=== PATIENT | male | born 1975 | race Caucasian/White ===

== ENCOUNTER 2021-05-28 19:55 | Emergency (ER) | payer SELFPAY ==
[2021-05-28 19:57] VITALS: BP 160/99; PULSE 90; RESP 16; TEMP 37.3; O2SAT 98
--- NOTE | 2021-05-28 20:26 | ED.GENADUL_ITS ---
Discharge Plan Disposition Patient Disposition: HOME Condition: Good Discharge Details Clinical Impression: Acute pulpitis, Dental infection Primary Care Provider: Unknown,Unknown ED Provider: Andreas Thornton Home Meds and New Rx's Prescriptions: Continued amoxicillin-pot clavulanate [Augmentin] 875-125 mg Tablet 1 tab PO BID RF: 0 Discharge Instructions Instructions: Dental Abscess (ED) Additional Instructions: At this time you do have an infection of your teeth, but at this time there is no evidence of abscess on ultrasound. If you have continued swelling please ret urn as this may mean that you do have an abscess that we need to drain with a needle. Please take the [place] pain tablets as needed. Place ice on your face to help with the swelling, and continue to take Tylenol and Motrin to help with your inflammation. Please follow-up closely with your dentist. If you notice any worsening of your symptoms, or any new symptoms such as vomiting, diarrhea, fever, chills, shortness of breath, chest pain, numbness, weakness, or fainting , please return immediately to the emergency department for reevaluation. Please follow up with your primary care provider as soon as possible for reassessment and reevaluation. As always, it was a pleasure participating in your medical care today. Discharge Data Discharge Date/Time-TO BE ENTERED AT DEPARTURE: 05/28/21 20:35 Medical Decision Making 45-year-old male with a past medical history of severe dental caries presents today for evaluation of dental pain and swelling. Patient has a history of severe caries but has been unable to manage them or get them cared for secondary to lack of insurance, in the recent pandemic. However over the last few days he has noted increased pain and swelling over the right upper frontal teeth. Patient did go and see his primary care provider, who did give him a shot of penicillin, a prescription for Augmentin, recommended he come to the ER for further evaluation secondary to swelling. Patient denies any fever or chills. He does feel that the swelling is encroaching up his face on the right. He denies any severe headache, he does admit to occasional blurry vision in his right eye. He denies any pain in his eye though. No other complaints at this time. He has not yet taken his first dose of Augmentin. Patient has been taking Tylenol and Motrin without significant improvement. Exam shows evidence of mild swelling above his right upper frontal teeth. However palpation demonstrates no evidence of fluctuance or abscess, bedside ultrasound also shows no evidence of fluctuance, fluid collection or abscess. With no signs of Ludewig's angina, airway compromise, orbital cellulitis, or significant/severe facial cellulitis which is no indication for IV antibiotics. Patient states that he does have his prescription filled for Augmentin, and will be able to take this. I did offer needle assessment for block and or potential evaluation of minimal fluid in the patient is refused any additional needle pokes at this time. Discussed red flags which to return. We will give a small bottle of [place] pills to go. I have extensively reviewed the treatment plan and discharge instructions with the patient. I have addressed all patient concerns at this time. The patient was made aware of what symptoms to monitor for that would warrant a return to the emergency department. Discussed the plan with the patient, they demonstrate verbal understanding and agreement with our assessment and plan at this time. The documentation in this chart was dictated using Mad[employer] dictation software. Please excuse any dictation errors. HPI General Date/Time Provider Initiated Documentation: 05/28/21 20:25 . HPI Narrative: 45-year-old male with a past medical history of severe dental caries presents today for evaluation of dental pain and swelling. Patient has a history of severe caries but has been unable to manage them or get them cared for secondary to lack of insurance, in the recent pandemic. However over the last few days he has noted increased pain and swelling over the right upper frontal teeth. Patient did go and see his primary care provider, who did give him a shot of penicillin, a prescription for Augmentin, recommended he come to the ER for further evaluation secondary to swelling. Patient denies any fever or chills. He does feel that the swelling is encroaching up his face on the right. He denies any severe headache, he does admit to occasional blurry vision in his right eye. He denies any pain in his eye though. No other complaints at this time. He has not yet taken his first dose of Augmentin. Patient has been taking Tylenol and Motrin without significant improvement. Related Data Home Medications Medication Instructions Recorded Confirmed amoxicillin-pot clavulanate 1 tab PO BID 05/28/21 05/28/21 [Augmentin] Allergies Allergy/AdvReac Type Severity Reaction Status Date / Time No Known Allergies Allergy Unverified 05/28/21 20:02 General Stated Complaint: FacialProb SERENA: 4 Review of Systems All systems reviewed & are unremarkable except as noted in HPI and below PFSH Social History Smoking/Tobacco Use Status: Current every day Tobacco Type: cigarettes Smoking risk assessment performed?: Yes Alcohol Intake: never Drug use: Never Do you feel safe at home: Yes Do you feel safe in your relationship?: Yes Exam Narrative Exam Narrative: 1.Const: Well-nourished, Well-developed, appearing stated age 2.Eyes: PERRL, no conjunctival injection, and symmetrical lids. 3.ENT: Atraumatic external nose and ears. Moist MM. Neck: Symmetric, trachea midline, No thyromegaly. Notably severe dentition. No swelling in the posterior oropharynx. Patient has mild swelling on the right side of his face below his eye, and at the level of his right cheek and right upper teeth. No pain with movement of the eye, no restriction of movement. Palpation of the upper gums shows no evidence of focal swelling or fluctuance suggestive of abscess. Bedside ultrasound also shows no evidence of abscess at or around the teeth. There is cobblestoning in the soft tissues, but no evidence of localized fluid collection. 4.CVS: +S1/S2, No murmurs or gallops. Peripheral pulses 2+ and equal in all extremities. Brisk capillary refill in all extremities. 5.RESP: Unlabored respiratory effort. Clear to auscultation bilaterally. No wheezes rales or rhonchi 6.GI: Soft, Nontender/Nondistended, No hepatosplenomegaly. No guarding or rebound. 7.MSK: Normocephalic/Atraumatic, Extremities w/o deformity or ttp No cyanosis or clubbing, Normal movement of all extremities 8.Skin: Warm, Dry. No rashes or lesions. 9.Neuro: mental health social worker II-XII grossly intact. Sensation grossly intact, no focal neurologic deficits. 10.Psych: (AAO) x3. Appropriate mood and affect Course Vital Signs Vital signs: Vital Signs Temperature 37.3 C 05/28/21 19:57 Pulse 90 05/28/21 19:57 Respiratory Rate 16 05/28/21 19:57 Blood Pressure 160/99 H 05/28/21 19:57 Pulse Oximetry 98 05/28/21 19:57 Temperature 37.3 C 05/28/21 19:57 Temperature Source Temporal Artery Scan 05/28/21 19:57 Pulse 90 05/28/21 19:57 Respiratory Rate 16 05/28/21 19:57 Respiratory Effort Non-Labored 05/28/21 20:04 Blood Pressure 160/99 H 05/28/21 19:57 Blood Pressure Position Sitting 05/28/21 19:57 Pulse Oximetry 98 05/28/21 19:57 Oxygen Delivery Method Room Air 05/28/21 19:57 Oxygen Flow Rate 0 05/28/21 19:57 Pain Level 10 05/28/21 19:57
[2021-05-28 20:33] VITALS: BP 135/89; PULSE 96; RESP 18; TEMP 36.4; O2SAT 98
== END 2021-05-28 20:35 | disposition home or self-care (01) ==
PROVIDERS: Emergency Provider Student in an Organized Health Care Education/Training Program
DX: K04.7 Periapical abscess without sinus (principal); K04.01 Reversible pulpitis
CPT/HCPCS: 99283

== ENCOUNTER 2022-02-25 04:33 | Outpatient (CLI) | payer MEDICAID, SELFPAY ==
[2022-02-25 11:32] LABS: Source Nasal/Nares
[2022-02-25 14:03] LABS: COVID-19 PCR Negative (Negative)
== END 2022-02-25 04:34 | disposition home or self-care (01) ==
LOC: LBO 04:34
PROVIDERS: PCP Family Medicine; Visit Provider Surgery
DX: Z20.822 Contact with and (suspected) exposure to COVID-19 (principal); Z01.818 Encounter for other preprocedural examination
CPT/HCPCS: 87635

== ENCOUNTER 2022-02-27 07:15 | Day surgery (SDC) | payer MEDICAID, SELFPAY ==
--- NOTE | 2022-02-27 06:31 | ROE_ITS ---
Date of service: 02/27/22 Time of Service: 10:10 Operative Note Operative Note DATE OF PROCEDURE: 02/27/22 PRE-OP DIAGNOSIS: multiple Lipomas POST-OP DIAGNOSIS: same PROCEDURE: Excision of multiple lipomas SURGEON: Romina Wan BUSINESS DEVELOPMENT SPECIALIST: Kathy Bell ANESTHESIA TYPE: Local By Surgeon and MAC Refer to Anesthesia Record ESTIMATED BLOOD LOSS: 3 PATHOLOGY: other (lipomas) COMPLICATIONS: None Patient was transported to: same day Patient's condition: stable Findings: Lipomas: Right thigh- 2.5 x 1.75 cm, 2.5 x 2 cm Left Thigh- 1.5 x 1.2 cm and 1.5 x 1.5 cm Left hip- 2.6 x 3.5 cm Right Forearm- 2.2 x 1.9, 2.3 x 1.4 cm, 1.8 x 1.3 and 1 x 0.8 cm Left Forearm- 1 x1, 1.3 x 1.5 and 2.2 x 2 cm Procedure Description: After informed consent was obtained the patient was taken to the operating room and placed in a supine position. Monitors were applied and he was sedated. Once sedated and comfortable a time out was done. The patients name, , Procedure to be done and sites, allergies to medication, antibiotic given and dvt prophilaxis were reviewed. Fire risk was assessed. The skin on his bilateral thighs and left hip were then prepped and draped in a sterile surgical fashion. 0.25% of Bupivocaine was injected into the dermis and subcutaneous tissue along the previously marked areas. An incision was made over the palpable lesion with a 15 blade. Dissection was done around the lesion using both blunt dissection with a hemostat and sharp dissection with curved iris scissors. Once the lipoma was completely dissected it was removed and measured. Two lipomas were removed from the Right anterior thigh, 3 of the left thigh and one of the left hip. Once the wound was clean and dry the dermis was closed with a running 4-0 Vicryl suture. Skin was cleaned and dried and skin affix was applied. Next the drapes were removed. We changed gloves and prepped and draped bilateral upper extremities. The Bupivocaine was injected into the dermis over the palpable lipomas. An incision was made over each lipoma. Dissection was done with iris scissors. Once the lipomas were removed they were measured. The skin was cleaned and dried. The dermis was closed with 4-0 vicryl. The skin was cleaned and skin affix was applied. A total of 4 lipomas were removed from the Right forearm and 3 lipomas were removed from the left forearm. The patient tolerated the procedure well and there were no immediate complications. Needle counts were correct at the end of the case. The patient was woken up and taken back to [facility],
--- NOTE | 2022-02-27 06:32 | W.PREOPHP ---
Assessment and Plan Assessment and plan (1) Lipoma: Status: Acute Assessment and plan: Mr. Juares is a 46-year-old gentleman with multiple lipomas on his body which she would like to have removed.? We discussed removal in the office under local versus removal in the operating room under MAC sedation.? Patient does not want to be awake while having these removed so we will schedule him in the operating room.? We will ask for some light sedation just so the patient is comfortable.? He will need to have somebody drive him to the hospital and pick him up.? I reviewed the risks and benefits of the procedure as well as scarring.? He understands and wishes to proceed. Risks, benefits, complications were reviewed with him.? Complications include but are not limited to bleeding, infection, wound dehiscence, recurrence and adverse reaction to the medications.? Questions were entertained and answered to his satisfaction and he wished to proceed.? No guarantees were given or implied. Proceed with excision of multiple lipomas under MAC sedation. History of Present Illness History of Present Illness Chief Complaint: multiple lipomas Narrative: Mr. Juares is a pleasant 46-year-old gentleman who comes in today because of multiple lipomas that he would like to have removed.? He states that most of them are starting to cause him discomfort.? His mother and grandmother both have had multiple lipomas removed.? He is otherwise healthy and only takes Wellbutrin as medication.? He denies any chest pain or shortness of breath. Review of Systems All systems reviewed & are unremarkable except as noted in HPI and below PFSH All Active Problems Lipoma (Acute) multiple small nodules- arms and legs-relatively small, 1-2 cm in diam. Medical History Acute pulpitis Anxiety and depression Longstanding Personal history of nicotine dependence 12/2021-about 1 pack/day, [id number] history Surgical History H/O wrist surgery Left wrist remotely probable ganglion versus lipoma removal Family History Father Heart disease Mother Depression Social History Smoking/Tobacco Use Status: Current every day Tobacco Type: cigarettes Smoking risk assessment performed?: Yes Alcohol Intake: never Drug use: Never Substance use type: does not use Do you feel safe at home: Yes Additional Social history: unableto assess privatley Meds Allergies and Home Medications Allergies Allergy/AdvReac Type Severity Reaction Status Date / Time No Known Allergies Allergy Unverified 02/27/22 07:27 Home Medications Medication Instructions Recorded Confirmed Type bupropion HCl 150 mg 24 hr tablet, 150 mg PO DAILY #30 tab 01/16/22 01/22/22 Rx extended release (Wellbutrin XL) Exam Const General: cooperative, comfortable and no acute distress HENMT Head: normocephalic and atraumatic Resp Effort & Inspection: normal respiratory effort Auscultation: clear to auscultation bilaterally Cardio Rate: regular rate Rhythm: regular rhythm Heart Sounds: no gallops, no murmurs and no rubs
--- NOTE | 2022-02-27 06:34 | W.PM.DSUDISC ---
Discharge Plan Disposition Patient Disposition: HOME Condition: Good Discharge Details Reason For Visit: Lipomas Attending Provider: Romina Wan Primary Care Provider: Palmer Bull Home Meds and New Rx's Prescriptions: Continued bupropion HCl [Wellbutrin XL] 150 mg tablet extended release 24 hr 150 mg PO DAILY Qty: 30 2RF Discharge Instructions Instructions: Care For Your Absorbable Stitches (DC) Additional Instructions: Activity at Home after surgery: 1.As tolerated Diet, Nutrition, & wound healin. Avoid alcohol until after you are recovered from your surgery 2. Make sure to eat plenty of lean protein (meat, fish, eggs, cottage cheese, beans) 3. Eat a variety of fruits and vegetables. Eat plenty of high fiber foods to avoid constipation. 4. Drink plenty of liquids to stay hydrated and avoid constipation Pain Medications: 1. Tylenol 650mg every 6 hours as needed and Ibuprofen 600 mg every 6 hours as needed. You may alternate between the 2 medications every 3 hours 2. If a narcotic has been prescribed take as directed only for breakthrough pain For Constipation: 1. Take Milk of Magnesia or MiraLax as needed for constipation Other: 1. You may shower daily. Do not scrub the incisions 2. Do not soak the incisions for 1 week 3. You may alternate ice and heat as needed for pain and swelling Wound Care: 1. Keep the incisions clean and dry Please call our office if you develop: 1. Fevers >101.5 2. Nausea or Vomiting 3. Worsening pain 4. Redness and thick discharge from the wounds If after hours please call the Hospital at and ask to speak to the on-call surgeon Referrals: Romina Wan MD [ [facility] STAFF PHYSICIAN] - Activity:: Activity as Tolerated Remove Dressings/Wound Care:: 24 hours Shower/Bathe:: 24 hours Diet:: As Tolerated Discharge Orders Discharge Orders: Discharge Order (Routine); Ordered 02/27/22 Ordered By: Romina Wan DS: Diagnosis Discharge Diagnosis (1) Lipoma: Status: Acute
[2022-02-27 07:16] VITALS: BP 129/86; PULSE 69; RESP 16; TEMP 36.7; O2SAT 99
[2022-02-27] MEDS: Acetaminophen 500 MG TAB 1000 MG PO (08:06)
[2022-02-27] MEDS: Celecoxib 200 MG CAP PO (08:07)
[2022-02-27] MEDS: Lactated Ringers 1,000 ML 80 ML IV (08:07)
--- NOTE | 2022-02-27 08:31 | W.ANESPRE ---
General Info Date of Service Date Performed: 02/27/22 Height: 5 ft 11 in Weight: 102.5 kg Body Mass Index (BMI): 31.5 Surgical Procedure: Operation Date: 02/27/22 09:10 Proposed Procedure Side Surgeon p Excision of multiple Lipomas Romina Wan MD Meds Allergies and Home Medications Allergies Allergy/AdvReac Type Severity Reaction Status Date / Time No Known Allergies Allergy Unverified 02/27/22 07:27 Home Medication Medication Instructions Recorded bupropion HCl 150 mg 24 hr tablet, 150 mg PO DAILY #30 tab 01/16/22 extended release (Wellbutrin XL) Current Visit Medications: Current Medications Generic Name Dose Route Start Last Admin Trade Name Freq PRN Reason Stop Dose Admin Acetaminophen 1,000 mg 02/27/22 06:00 02/27/22 08:06 Acetaminophen 500 Mg Tab PO 02/27/22 16:00 1,000 mg PREOP KAREN Administration Celecoxib 200 mg 02/27/22 06:00 02/27/22 08:07 Celecoxib 200 Mg Cap PO 02/27/22 16:00 200 mg PREOP KAREN Administration Ringer's Solution 1,000 mls @ 80 mls/hr 02/27/22 06:00 02/27/22 08:07 IV 03/28/22 23:59 80 mls/hr INFUSION KAREN Administration Cefazolin Sodium/Dextrose 2 gm in 50 mls @ 100 mls/hr 02/27/22 06:00 Ancef Duplex IVPB 02/27/22 16:00 PREOP KAREN IV Miscellaneous Supplies 1 each 02/27/22 06:00 Iv Access IV 03/28/22 23:59 DIRECTED KAREN Ibuprofen 600 mg 02/27/22 06:35 Ibuprofen 600 Mg Tab PO Q6H PRN PRN Pain Sodium Chloride 0 ml 02/27/22 06:00 Normal Saline Flush 10 Ml Syr IV 03/28/22 23:59 PRN PRN Sodium Chloride 0 ml 02/27/22 06:00 Normal Saline 10 Ml Vial IJ 03/28/22 23:59 DIRECTED PRN Sterile Water 0 ml 02/27/22 06:00 Water,Injection,Sterile 10 Ml Vial IJ 03/28/22 23:59 DIRECTED PRN PFSH Active Problems Active Problems: Problem Status Onset Code Lipoma D17.9 Medical History Medical History Acute pulpitis Anxiety and depression Longstanding Personal history of nicotine dependence 12/2021-about 1 pack/day, [id number] history Surgical History Surgical History H/O wrist surgery Left wrist remotely probable ganglion versus lipoma removal Tobacco Smoking/Tobacco Use Status: Current every day Tobacco Type: cigarettes Alcohol Alcohol Intake: never Substance Use Substance use: Never Substance use type: does not use Vital Signs and Lab Results Vital Signs Most Recent Vital Signs in EMR: Most Recent Vital Signs Temp Pulse Resp BP Pulse Ox 36.7 C 69 16 129/86 99 02/27/22 07:16 02/27/22 07:16 02/27/22 07:16 02/27/22 07:16 02/27/22 07:16 Lab Results Blood Type / Crossmatch: No Data to Display Complete Blood Count: No Data to Display Complete Metabolic Panel: No Data to Display Liver Function Panel: No Data to Display Coagulation Panel: No Data to Display Cardiac Panel: No Data to Display Arterial Blood Gas: No Data to Display Venous Blood Gas: No Data to Display Pancreas Panel: No Data to Display Thyroid Panel: No Data to Display Infectious Disease: Coronavirus (COVID-19)(PCR) Negative (Negative) 02/25/22 08:26 02/25/22 Coronavirus 2019 Source Nasal/Nares 02/25/22 08:26 02/25/22 Blood Cultures: No Data to Display Toxicology Panel: No Data to Display Anesthesia Assessment and Plan Anesthesia History Personal History: No History of Anesthesia Complications Family History: No Family History of Anesthesia Complications Exercise Tolerance Exercise Tolerance: Metabolic Equivalents>4 Pertinent Negatives Pertinent Negatives: No Symptoms of GERD, No Major Cardiovascular Symptoms or Complaints and No Major Pulmonary Symptoms or Complaints Cardiac & Pulmonary Exam Cardiac Exam: Normal S1/S2 Heart Sounds Pulmonary Exam: Clear Bilateral Breath Sounds Implantable Cardiac Device Does patient have a Pacemaker or an ICD?: No Airway Exam Known Difficult Airway: No Mallampati Class: 2 Mouth Opening: Narrow (< 3cm) Thyromental Distance: Greater than 3 cm Neck Range of Motion: Full ROM Neck Circumference: Normal Teeth Condition: Generalized Poor Dentition ASA Classification ASA Score: ASA 2 Emergency Case?: No NPO Status NPO Status: NPO Clears >2 hours, Solids >8 hours Anesthesia Plan Resuscitation Status: Full Code Anesthesia Technique: General Anesthesia Airway Planned: Natural Airway Monitors Used: Standard Monitors
[2022-02-27 08:33] VITALS: BMI 31.5
[2022-02-27 10:06] VITALS: BP 109/71; PULSE 68; RESP 16; TEMP 36.6; O2SAT 97
[2022-02-27] MEDS: Bupivacaine 0.25% Pres-Free 30 ML VIAL ×2 (10:11)
[2022-02-27 10:42] VITALS: BP 120/78; PULSE 66; RESP 16; TEMP 36.4; O2SAT 97
--- NOTE | 2022-02-27 10:43 | W.ANESPOSTOP ---
Postoperative Evaluation Date, Time and Location Date Performed: 02/27/22 Time Performed: 10:44 Patient Location: Day Surgery Unit Vital Signs Most Recent Imported Vital Signs: Most Recent Vital Signs Temp Pulse Resp BP Pulse Ox 36.6 C 68 16 109/71 97 02/27/22 10:06 02/27/22 10:06 02/27/22 10:06 02/27/22 10:06 02/27/22 10:06 Pain Score Most Recent Pain Score: Most Recent Pain Score Pain Level 0 02/27/22 10:06 Assessment Mental Status: Awake (Alert & Oriented to Patient Baseline) Airway and Respiratory Function: Patent airway with normal (patient baseline) respiratory exam Cardiovascular Function: Hemodynamically Stable Hydration Status: Adequately Hydrated Nausea & Vomiting: No Nausea or Vomiting Pain: Pt. Denies Any Pain Peripheral Nerve Block: Patient did not receive a nerve block
== END 2022-02-27 11:10 | disposition home or self-care (01) ==
LOC: SUR 07:15
PROVIDERS: PCP Family Medicine; Visit Provider Surgery
PROC: (CPT 11404; principal; 2022-02-27 09:00)
DX: D17.22 Benign lipomatous neoplasm of skin and subcutaneous tissue of left arm (principal); D17.21 Benign lipomatous neoplasm of skin and subcutaneous tissue of right arm; D17.24 Benign lipomatous neoplasm of skin and subcutaneous tissue of left leg; D17.23 Benign lipomatous neoplasm of skin and subcutaneous tissue of right leg
CPT/HCPCS: 11404; 11401 ×2; 11402 ×4; 11403 ×5; J1100; J1885; J2001; J2250; J2405; J3010

== ENCOUNTER 2022-05-27 10:59 | Outpatient (CLI) | payer MEDICAID, SELFPAY ==
--- NOTE | 2022-05-27 10:45 | DI.RAD_ITS ---
Exam(s) XR KNEE RT 4V AP,LAT,AMOS,PAT EXAM: XR KNEE RT 4V AP,LAT,AMOS,PAT CLINICAL HISTORY: pain for 1 year. TECHNIQUE: 2D digital imaging was performed. COMPARISON: CR XR KNEE LT 4V AP,LAT,AMOS,PAT from 05/27/2022 FINDINGS: Four views No evidence of fracture or dislocation. There appears to be a joint effusion which may signify an in ternal derangement. There are mild degenerative changes in the medial compartment. There is no join t space narrowing. No osseous lesions. Bone density normal IMPRESSION: DATA REPOSITORY: RADIATION DOSE DELIVERED:
--- NOTE | 2022-05-27 10:45 | DI.RAD_ITS ---
Exam(s) XR KNEE LT 4V AP,LAT,AMOS,PAT EXAM: XR KNEE LT 4V AP,LAT,AMOS,PAT CLINICAL HISTORY: pain for 1 year. TECHNIQUE: 2D digital imaging was performed. COMPARISON: No exams were available for comparison FINDINGS: 3 views No evidence of obvious fracture nor joint effusion. Mild degenerative changes. Bone density normal. No osseous IMPRESSION: DATA REPOSITORY: RADIATION DOSE DELIVERED:
== END 2022-05-27 11:00 | disposition home or self-care (01) ==
LOC: DIORS 11:00
PROVIDERS: PCP Nurse Practitioner Family; Referring Provider Nurse Practitioner Family; Visit Provider Physician Assistant Surgical
DX: M25.561 Pain in right knee (principal); M25.562 Pain in left knee
CPT/HCPCS: 73564

== ENCOUNTER → 2023-08-18 01:05 | Outpatient (CLI) | payer MEDICAID, SELFPAY ==
--- NOTE | 2023-08-18 08:00 | DI.MRI_ITS ---
Exam(s) MR LOWER JOINT LT WO EXAM: MR LOWER JOINT LT WO CLINICAL HISTORY: PAIN,PATELLAR TENDONITIS LT KNEE, M76.51. TECHNIQUE: Multiplanar multisequence MRI was performed. COMPARISON: CR XR KNEE LT 4V AP,LAT,AMOS,PAT from 05/27/2022 FINDINGS: BONES: There is no fracture or contusion pattern. JOINTS: Articular cartilage is unremarkable. No effusion is present. TENDONS: Extensor mechanism: There is mild increased signal seen in the extensor tendon which may represent te ndinitis. Medial retinaculum: Unremarkable. Lateral retinaculum: Unremarkable. Popliteus: Unremarkable. MUSCLES: Unremarkable. MENISCI: The medial meniscus is unremarkable. There is a 1.3 x 0.6 cm lateral left parameniscal cyst which appears to communicate with the body of the lateral meniscus can suggestive of a tear. SOFT TISSUES: Dilated veins are seen in the medial soft tissues. There are filling defects present s uggesting superficial thrombophlebitis. LIGAMENTS: Anterior Cruciate: There is mild hyperintense signal seen in the ACL. This may represent a sprain or partial tear. Posterior Cruciate: Unremarkable. Medial Collateral:Unremarkable. Lateral Collateral: There is a small amount of increased signal seen on the T2 weighted images around the lateral collateral ligament complex which may represent a sprain. No evidence of a tear. OTHER: IMPRESSION: 1. Findings most suggestive of a tear of the body of the lateral meniscus with an associated parameni scal cyst. 2. Hyperintense signal seen in both the anterior cruciate ligament and around the lateral collateral ligament which may represent sprains. Partial tear of the ACL should should also be considered. 3. Dilated veins in the medial soft tissues with filling defects suggesting superficial thrombophlebi tis. If clinically indicated and nonemergent ultrasound may be obtained. Unexpected findings DATA REPOSITORY:
--- NOTE | 2023-08-18 08:00 | DI.MRI_ITS ---
Exam(s) MR LOWER JOINT RT WO EXAM: MR LOWER JOINT RT WO CLINICAL HISTORY: PAIN,INTERNAL DERANGEMENT RT KNEE, M23.91. TECHNIQUE: Multiplanar multisequence MRI was performed. COMPARISON: CR XR KNEE RT 4V AP,LAT,AMOS,PAT from 05/27/2022 FINDINGS: BONES: There is no fracture or contusion pattern. JOINTS: Articular cartilage is unremarkable. No effusion is present. TENDONS: Extensor mechanism: Unremarkable. Medial retinaculum: Unremarkable. Lateral retinaculum: Unremarkable. Popliteus: Unremarkable. MUSCLES: Unremarkable. MENISCI: The medial meniscus is unremarkable. The lateral meniscus is unremarkable. SOFT TISSUES: Unremarkable. LIGAMENTS: Anterior Cruciate: There is mild hyperintense signal seen in the anterior cruciate ligament which may represent a partial tear. Posterior Cruciate: Unremarkable. Medial Collateral:Unremarkable. Lateral Collateral: Unremarkable. OTHER: IMPRESSION: There is hyperintense signal seen in the anterior cruciate ligament which may represent a partial tea r or sprain. DATA REPOSITORY:
== END ==
PROVIDERS: PCP Nurse Practitioner Family; Visit Provider Student in an Organized Health Care Education/Training Program
DX: M23.051 Cystic meniscus, posterior horn of lateral meniscus, right knee (principal); M76.52 Patellar tendinitis, left knee
CPT/HCPCS: 73721

== ENCOUNTER 2023-08-29 20:03 | Emergency (ER) | payer MEDICAID, SELFPAY ==
[2023-08-29 20:07] VITALS: BP 164/94; PULSE 71; RESP 16; TEMP 36.8; O2SAT 99
--- NOTE | 2023-08-29 20:16 | W.ED.GENAD ---
Discharge Plan Disposition Patient Disposition: Home Condition: Good Discharge Details Clinical Impression: Dental infection Primary Care Provider: Tanvir Humphrey ED Provider: Maria Fernanda Fox Home Meds and New Rx's Prescriptions: New penicillin V potassium 500 mg tablet 500 mg PO QID 6 Days Qty: 24 0RF Discharge Instructions Instructions: Penicillin V (By mouth), Dental Abscess (ED) Additional Instructions: Your history and exam is most consistent with a dental infection. The fact that you are significantly improved after the dental block does support this further. Please take the antibiotics as prescribed as I am concerned that your pain was associated with the infection. This will be a penicillin 4 times daily for the next 7 days. You are being sent home with some the rest will be sent to [facility] in [place]. Please encourage hydration. May continue with Tylenol and ibuprofen as needed for discomfort. Attached a list of local dentists and also discussed payment options. Please follow-up with primary care in 2 weeks if you are not able to be seen by a dentist. You will need to be seen by dentist for definitive care. If you develop fever/chills, increased pain, inability stay hydrated or other new/worsening symptom please seek care urgently once again. Referrals: Tanvir Humphrey, [employer] [Primary Care Provider] - Medical Decision Making Patient is a pleasant 47-year-old male presenting today with chief complaint of right upper mouth and face pain. He reports that he has had several dental infections in the past and that this feels similar. States that he has overall poor dentition and does not have a dentist. Denies any recent trauma. Denies any fevers or chills. States that the pain can also go up towards the right adventist. It has focal pain here but no lavern headaches. Denies any nausea or vomiting. States that eating does increase his pain as has other stimulants over this area. On exam, patient appears nontoxic. Ear exam is normal. He has overall poor dentition. In the right upper posterior tooth, broken brown tooth is noted with pain along the buccal side. No pain along the lingual side. No evidence of abscess at this time. No significant swelling. Given patient's age and current dentition I find dental infection much more likely than other etiologies such as temporal arteritis. While he does have pain with chewing, does not sound to be jaw claudication but more focal dental pain. Patient has been having severe pain which has been limiting him sleeping. Plan to have patient be seen by dentist. We will give him a list of local dentist as well as any information we have on assistance with dental care and payment. He and I discussed with/benefits as well as expected procedural steps and alternatives to dental block and patient voiced understanding and wished to proceed. Patient was initially numbed with HurriCaine gel. Please see procedure note. Immediately after injection of the bupivacaine, patient had resolution of his pain both in the tooth as well as the temporal area. He has no physical findings to suggest meningitis, no meningismus. We will begin the patient on penicillin VK. Strict return precautions were discussed. Patient was given list of local dentist as well as information on cheaper reduced cost options. All of his questions and concerns were addressed and patient is in agreement this plan. He was given his first dosing of penicillin here and rest was sent to pharmacy of choice. HPI General Date/Time Provider Initiated Documentation: 08/29/23 20:16. Limitations to Documentation: no limitations. Information obtained by: patient and RN notes reviewed. History of Present Illness 47 year old M presents to the emergency department with the chief complaint of Right upper dental pain, described as severe and similar to prior episodes, with intensity rated at 10. Quality is described as stabbing, and is localized to the face and mouth. Patient reports no radiation. Patient started experiencing this day(s) (2) and it has been constant. No relieving factors improve symptom(s), No exacerbating factors reported . Patient notes loss of appetite and malaise (Reports difficulty sleeping secondary to pain); denies chest pain, diaphoresis, fever/chills and nausea/vomiting. Patient did receive the following treatments prior to arrival, none Related Data Home Medications Medication Instructions Recorded Confirmed penicillin V potassium 500 mg 500 mg PO QID 6 days #24 tabs 08/29/23 tablet Previous Rx's Medication Instructions Recorded penicillin V potassium 500 mg 500 mg PO QID 6 days #24 tabs 08/29/23 tablet Allergies Allergy/AdvReac Type Severity Reaction Status Date / Time No Known Allergies Allergy Verified 08/29/23 20:11 General Stated Complaint: DentalOral SERENA: 4 Review of Systems Constitutional Constitutional: Reports as per HPI, Denies chills, Denies fatigue, Denies fever(s), Denies headache(s) and Denies poor appetite Eyes Eyes: Denies change in vision and Denies irritation ENT Ears, Nose, Mouth, and Throat: Reports as per HPI, Reports dental pain, Denies dysphagia, Denies ear discharge, Denies otalgia, Reports facial pain, Denies headache(s), Denies nasal congestion, Denies odynophagia and Denies sore throat Cardiovascular Cardiovascular: Reports as per HPI and Denies chest pain Respiratory Respiratory: Reports as per HPI and Denies cough Gastrointestinal Gastrointestinal: Reports as per HPI, Denies dysphagia, Denies nausea, Denies odynophagia and Denies vomiting Integumentary/Breasts Skin/Breast: Reports as per HPI, Denies erythema, Denies rash and Denies skin pain Neurologic Neurologic: Reports as per HPI and Denies headache(s) Endocrine Endocrine: Denies fatigue PFSH All Active Problems (Updated 08/29/23 @ 21:06 by EFRAIN Guerra) Dental infection (Acute) Acute lateral meniscus tear of left knee (Acute) Tear of medial meniscus of left knee (Acute) Tendinitis of right quadriceps tendon (Acute) Patellar tendonitis of left knee (Acute) Internal derangement of right knee (Acute) Steroid injection: 04/04/2023; 05/27/2022 Internal derangement of left knee (Acute) Steroid injection: 04/04/2023; 05/27/2022 Lipoma (Acute) multiple small nodules- arms and legs-relatively small, 1-2 cm in diam. Medical History Acute pulpitis Anxiety and depression Longstanding Personal history of nicotine dependence 12/2021-about 1 pack/day, 32-cbay-toxe history Surgical History H/O wrist surgery Left wrist remotely probable ganglion versus lipoma removal Family History Father Heart disease Mother Depression Social History Smoking/Tobacco Use Status: Current every day Tobacco Type: cigarettes Smoking risk assessment performed?: Yes Alcohol Intake: never Drug use: Never Substance use type: does not use Housing: house Do you feel safe at home: Yes Do you feel safe in your relationship?: Yes Exam Const General: cooperative, healthy appearing, uncomfortable, no acute distress, well developed and well groomed Nutritional Appearance: average body habitus and well nourished Orientation: alert and awake [facility] Head: normal to inspection, normocephalic and atraumatic Ears: hearing grossly normal bilaterally, external ears normal and TM's normal bilaterally General nose exam: external nose normal and nares normal Face and sinus: normal facial exam, sinuses nontender and face symmetric Teeth and gingiva: caries and poor dentition Teeth image: 1. Area of maximal pain. Patient has broken brown tooth in this area. Pain is along the buccal side with no pain along the lingual side. No significant swelling or focal fluctuant area. With palpation over this area, pain increases rating towards the adventist. No discharge. Overall poor dentition. Throat: posterior oropharynx normal, tonsils normal and uvula midline Eyes General: appearance normal, both eyes and all related structures Neck Neck: normal visual inspection, full ROM, no lymphadenopathy, supple and no anterior neck swelling Resp Effort & Inspection: normal respiratory effort, able to speak in complete sentences and no respiratory distress Auscultation: clear to auscultation bilaterally, no rales, no rhonchi and no wheezes Cardio Rate: regular rate Rhythm: regular rhythm Heart Sounds: S1 normal and S2 normal Skin General skin exam: no rashes or lesions noted Trauma: no lacerations or abrasions Neuro General: patient alert and patient awake Cognition: normal cognition Speech: speech normal Gait: normal gait Psych Appearance: grossly normal and well kempt Mental Status: mental status grossly normal Speech and Movement: speech and movement normal Course Vital Signs Vital signs: Vital Signs Temperature 36.8 C 08/29/23 20:07 Pulse 71 08/29/23 20:07 Respiratory Rate 16 08/29/23 20:07 Blood Pressure 164/94 H 08/29/23 20:07 Pulse Oximetry 99 08/29/23 20:07 Temperature 36.8 C 08/29/23 20:07 Temperature Source Temporal Artery Scan 08/29/23 20:07 Pulse 71 08/29/23 20:07 Respiratory Rate 16 08/29/23 20:07 Respiratory Effort Normal, Non-Labored 08/29/23 20:10 Blood Pressure 164/94 H 08/29/23 20:07 Blood Pressure Position Sitting 08/29/23 20:07 Pulse Oximetry 99 08/29/23 20:07 Oxygen Delivery Method Room Air 08/29/23 20:07 Oxygen Flow Rate 0 08/29/23 20:07 Pain Level 10 08/29/23 20:07 Procedures Nerve Block Nerve Block 1: Time out performed: Yes Local Anesthetic: Bupivicaine 0.5% Amount of anesthesia used (mL): 1 Side: right Intraoral Nerve Block: supraperiosteal Procedure Successful: Yes Patient Tolerated Procedure: well and no complications Complications: none
[2023-08-29] MEDS: Bupivacaine 0.5% Pres-Free 30 ML VIAL (20:40)
[2023-08-29] MEDS: Penicillin V POTASSIUM 500 MG TAB, 4 TABS/BTL PO ×2 (21:15)
[2023-08-29] MEDS: Benzocaine 20% 60 ML CAN TP (21:15)
[2023-08-29 21:24] VITALS: BP 164/94; PULSE 71; RESP 16; TEMP 36.8; O2SAT 99
== END 2023-08-29 21:21 | disposition home or self-care (01) ==
PROVIDERS: Emergency Provider Physician Assistant; PCP Nurse Practitioner Family
DX: R68.84 Jaw pain (principal); K04.7 Periapical abscess without sinus
CPT/HCPCS: 99283; 99284

== ENCOUNTER 2023-12-02 11:03 | Day surgery (SDC) | payer MEDICAID, SELFPAY ==
[2023-12-02] VITALS (9 sets, daily range): BP systolic 108–145; BP diastolic 69–96; PULSE 61–76; RESP 11–19; TEMP 36.2–36.7; O2SAT 95–100; BMI 27.9
--- NOTE | 2023-12-02 09:47 | PDOC.DSDIS_ITS ---
Date of service: 12/02/23 Time of Service: 09:49 Discharge Plan Disposition Patient Disposition: Home Condition: Good Discharge Details Reason For Visit: Left knee internal derangement Attending Provider: Dean Mcmullen Primary Care Provider: Tanvir Humphrey Home Meds and New Rx's Prescriptions: New hydrocodone-acetaminophen 5-325 mg tablet 1 tab PO Q6H PRN (Reason: pain) Qty: 12 0RF aspirin 81 mg tablet,delayed release (DR/EC) 81 mg PO BID Qty: 60 0RF acetaminophen 500 mg tablet 500 mg PO Q6H PRN PRN (Reason: pain) Qty: 40 3RF ibuprofen 600 mg tablet 600 mg PO TID PRN (Reason: pain) Qty: 90 3RF Continued lisinopril 20 mg tablet 20 mg PO DAILY Qty: 90 3RF hydrocodone-acetaminophen 5-325 mg tablet 1 tab PO TID MDD 15mg PRN (Reason: pain) Qty: 66 0RF Discharge Instructions Stand Alone Forms: Anesthesia Discharge Inst., Benedict Knee Arthroscopy, Press Ganey (DSU), Use of Axillary Crutches Referrals: Dean Mcmullen MD [ [facility] STAFF PHYSICIAN] - 12/15/23 11:15 am Equipment/Supplies: Partial Weight Bearing Crutches Activity:: Elevate Remove Dressings/Wound Care:: 48 hours Shower/Bathe:: 48 hours Diet:: As Tolerated Discharge Orders Discharge Orders: Discharge Order (Routine); Ordered 12/02/23 Ordered By: Ana Maria Tadeo
--- NOTE | 2023-12-02 11:35 | W.ANESPRE ---
General Info Date of Service Date Performed: 12/02/23 Height: 5 ft 11 in Weight: 90.8 kg Body Mass Index (BMI): 27.9 Surgical Procedure: Operation Date: 12/02/23 14:10 Proposed Procedure Side Surgeon p Knee Arthroscopy, Partial Lateral Menisectomy Left Dean Mcmullen MD Meds Allergies and Home Medications Allergies Allergy/AdvReac Type Severity Reaction Status Date / Time No Known Allergies Allergy Verified 12/02/23 11:35 Home Medication Medication Instructions Recorded lisinopril 20 mg tablet 20 mg PO DAILY #90 tabs 10/09/23 hydrocodone 5 mg-acetaminophen 325 1 tab PO TID PRN pain #66 tabs 11/10/23 mg tablet Current Visit Medications: Current Medications Generic Name Dose Route Start Last Admin Trade Name Freq PRN Reason Stop Dose Admin Acetaminophen 650 mg 12/02/23 09:46 Acetaminophen 325 Mg Tab PO 01/01/24 09:45 Q4H PRN PRN Hydrocodone Bitart/Acetaminophen 0 tab 12/02/23 09:46 Hydrocodone 5/Acetaminophen 325 Tab PO 01/01/24 09:45 Q3H PRN PRN Pain Ringer's Solution 1,000 mls @ 80 mls/hr 12/02/23 06:00 IV 12/31/23 23:59 INFUSION KAREN Cefazolin Sodium/Dextrose 2 gm in 50 mls @ 100 mls/hr 12/02/23 06:00 Ancef Duplex IVPB 12/31/23 23:59 PREOP KAREN IV Miscellaneous Supplies 1 each 12/02/23 06:00 Iv Access IV 12/31/23 23:59 DIRECTED KAREN Sodium Chloride 0 ml 12/02/23 06:00 Normal Saline Flush 10 Ml Syr IV 12/31/23 23:59 PRN PRN Sodium Chloride 0 ml 12/02/23 06:00 Normal Saline 10 Ml Vial IJ 12/31/23 23:59 DIRECTED PRN Sterile Water 0 ml 12/02/23 06:00 Water,Injection,Sterile 10 Ml Vial IJ 12/31/23 23:59 DIRECTED PRN PFSH Active Problems Active Problems: Problem Status Onset Code Hypertension I10 Acute lateral meniscus tear of left knee S83.282A Tendinitis of right quadriceps tendon M76.891 Patellar tendonitis of left knee M76.52 Internal derangement of right knee M23.91 Internal derangement of left knee M23.92 Lipoma D17.9 Medical History Medical History Personal history of nicotine dependence 12/2021-about 1 pack/day, [id number] history Anxiety and depression Longstanding Acute pulpitis Medical History Comments:: 12/02/23: pt is anxious. pt has smoked 4 cigarettes before pre-op. Surgical History Surgical History H/O tooth extraction H/O wrist surgery Left wrist remotely probable ganglion versus lipoma removal Tobacco Smoking/Tobacco Use Status: Current every day Tobacco Type: cigarettes Smoking cigarettes per day: 10 Years smoked: 25 Alcohol Alcohol Intake: never Substance Use Substance use: Never Substance use type: does not use Vital Signs and Lab Results Vital Signs Most Recent Vital Signs in EMR: Most Recent Vital Signs Temp Pulse Resp BP Pulse Ox 36.7 C 76 18 136/88 100 12/02/23 11:24 12/02/23 11:24 12/02/23 11:24 12/02/23 11:24 12/02/23 11:24 Lab Results Blood Type / Crossmatch: No Data to Display Complete Blood Count: No Data to Display Complete Metabolic Panel: No Data to Display Liver Function Panel: No Data to Display Coagulation Panel: No Data to Display Cardiac Panel: No Data to Display Arterial Blood Gas: No Data to Display Venous Blood Gas: No Data to Display Pancreas Panel: No Data to Display Thyroid Panel: No Data to Display Infectious Disease: No Data to Display Blood Cultures: No Data to Display Toxicology Panel: No Data to Display Anesthesia Assessment and Plan Anesthesia History Personal History: No History of Anesthesia Complications Family History: No Family History of Anesthesia Complications Exercise Tolerance Exercise Tolerance: Metabolic Equivalents>4 Cardiac & Pulmonary Exam Cardiac Exam: Normal S1/S2 Heart Sounds Pulmonary Exam: Clear Bilateral Breath Sounds Implantable Cardiac Device Does patient have a Pacemaker or an ICD?: No Airway Exam Known Difficult Airway: No Mallampati Class: 2 Mouth Opening: Narrow (< 3cm) Thyromental Distance: Greater than 3 cm Neck Range of Motion: Full ROM Neck Circumference: Normal Teeth Condition: Edentulous ASA Classification ASA Score: ASA 2 Emergency Case?: No NPO Status NPO Status: NPO Clears >2 hours, Solids >8 hours Anesthesia Plan Resuscitation Status: Full Code Anesthesia Technique: General Anesthesia Airway Planned: LMA Monitors Used: Standard Monitors Preoperative Comments:: 47 yo male for knee scope. Sig PMHx: HTN (lisinopril), anxiety/depression, smoker,
[2023-12-02] MEDS: Lactated Ringers 1,000 ML 80 ML IV (11:39)
--- NOTE | 2023-12-02 12:47 | W.PREOPHP ---
Assessment and Plan Assessment and plan (1) Acute lateral meniscus tear of left knee: Status: Acute Assessment and plan: Satya is a 47-year-old who has a medial meniscal tear of the left knee. He had ongoing pain about this knee for some time. I have offered him arthroscopic meniscal intervention as well as potential debridement. I reviewed the technical details of the surgery. I discussed the risk to include bleeding, infection, pain, stiffness, continued symptoms, read tear, need for repeat procedures, blood clot. Despite these risk, he elects to proceed. Qualifiers: Encounter type: subsequent encounter Qualified Code(s): S83.282D - Other tear of lateral meniscus, current injury, left knee, subsequent encounter History of Present Illness History of Present Illness Chief Complaint: Left knee pain Narrative: Satya is a 37-year-old who have seen previously for bilateral knee pain. He has left worse than right knee pain. He has pain over the medial aspect the knee as well as around the patella. This pain is worse on the left side. He had MRI both knees which showed a meniscal tear on the left knee. Therefore, I offered arthroscopic partial medial meniscectomy with debridement as indicated. He had failed other nonoperative options including physician directed exercise, injections, anti-inflammatories. He denies any recent illness. No chest pain or shortness of breath. Review of Systems All systems reviewed & are unremarkable except as noted in HPI and below PFSH All Active Problems Hypertension (Chronic) Acute lateral meniscus tear of left knee (Acute) Tendinitis of right quadriceps tendon (Acute) Patellar tendonitis of left knee (Acute) Internal derangement of right knee (Acute) Steroid injection: 04/04/2023; 05/27/2022 Internal derangement of left knee (Acute) Steroid injection: 04/04/2023; 05/27/2022 Lipoma (Acute) multiple small nodules- arms and legs-relatively small, 1-2 cm in diam. Medical History Personal history of nicotine dependence 12/2021-about 1 pack/day, [id number]-lozt-piwg history Anxiety and depression Longstanding Acute pulpitis Surgical History H/O tooth extraction H/O wrist surgery Left wrist remotely probable ganglion versus lipoma removal Family History Father Heart disease Mother Depression Social History Smoking/Tobacco Use Status: Current every day Tobacco Type: cigarettes Years smoked: 25 Smoking risk assessment performed?: Yes Alcohol Intake: never Drug use: Never Substance use type: does not use Housing: house Do you feel safe at home: Yes (unable to assess privately) Do you feel safe in your relationship?: Yes Meds Allergies and Home Medications Allergies Allergy/AdvReac Type Severity Reaction Status Date / Time No Known Allergies Allergy Verified 12/02/23 11:35 Home Medications Medication Instructions Recorded Confirmed Type lisinopril 20 mg tablet 20 mg PO DAILY #90 tabs 10/09/23 12/02/23 Rx hydrocodone 5 mg-acetaminophen 325 1 tab PO TID PRN pain #66 tabs 11/10/23 12/02/23 Rx mg tablet Exam Resp Effort & Inspection: normal respiratory effort Auscultation: clear to auscultation bilaterally Cardio Rate: regular rate Rhythm: regular rhythm Extrem Other: Pain in the medial aspect of the knee with palpation of the joint line. Positive Apley maneuver. Some pain with patellar mobilization. Stable to varus and valgus stress. 5-5 knee extension strength. Sensation intact light touch of the deep and superficial peroneal nerve and tibial nerve. Palpable DP and PT pulse. Results Last Vital Signs Temp 36.7 C 12/02/23 11:24 Pulse 76 12/02/23 11:24 Resp 18 12/02/23 11:24 BP 136/88 12/02/23 11:24 Pulse Ox 100 12/02/23 11:24
[2023-12-02] MEDS: ceFAZolin 2 GM/50 ML BAG IVPB (12:54)
[2023-12-02] MEDS: EPINEPHrine 10 MG/10 ML ML (13:00)
[2023-12-02] MEDS: Bupivacaine 0.5% Pres-Free 30 ML VIAL (13:40)
--- NOTE | 2023-12-02 14:13 | W.ANESPOSTOP ---
Postoperative Evaluation Date, Time and Location Date Performed: 12/02/23 Time Performed: 14:13 Patient Location: PACU Vital Signs Most Recent Imported Vital Signs: Most Recent Vital Signs Temp Pulse Resp BP Pulse Ox 36.6 C 71 16 108/71 95 12/02/23 14:10 12/02/23 14:10 12/02/23 14:10 12/02/23 14:10 12/02/23 14:10 Pain Score Most Recent Pain Score: Most Recent Pain Score Pain Level 0 12/02/23 14:10 Assessment Mental Status: Arousable with meaningful communication Airway and Respiratory Function: Patent airway with normal (patient baseline) respiratory exam Cardiovascular Function: Hemodynamically Stable Hydration Status: Adequately Hydrated Nausea & Vomiting: No Nausea or Vomiting Pain: Pain is tolerable per patient Peripheral Nerve Block: Patient did not receive a nerve block
[2023-12-02] MEDS: HYDROcodone 5/Acetaminophen 325 TAB PO (15:02)
--- NOTE | 2023-12-02 17:27 | W.PM.OP ---
Date of service: 12/02/23 Time of Service: 13:00 Operative Note Operative Note DATE OF PROCEDURE: 12/02/23 PRE-OP DIAGNOSIS: Left knee lateral meniscal tear POST-OP DIAGNOSIS: other (Complex, displaced lateral meniscal tear and large chondral flap from medial-distal femur) PROCEDURE: Arthroscopic partial lateral meniscectomy, medial chondroplasty - left knee SURGEON: Dean Mcmullen ANESTHESIA TYPE: General LMA/ETT Refer to Anesthesia Record ESTIMATED BLOOD LOSS: 0 PATHOLOGY: none sent TOURNIQUET TIME: 0 COMPLICATIONS: None Patient was transported to: PACU Patient's condition: stable Indications: I have seen Satya in clinic for symptoms of a meniscus tear. This was confirmed based on MRI and exam findings. Nonoperative measures were exhausted but disability and pain persisted. I discussed knee arthroscopy with meniscal intervention with the patient. I reviewed the risks of the procedure to include, but not limited to, bleeding, infection, pain, stiffness, damage to nerves or vessels, recurrence, blood clot. Despite these risks, the patient elected to proceed. Findings: A diagnostic arthroscopy was performed with the following findings: Suprapatellar Pouch: No significant inflammation, No loose bodies Medial Compartment: No significant meniscal tearing, Intact meniscal root, a flap measuring about 1 cm from anterior to posterior which was unstable but not full-thickness, No loose bodies Notch: ACL and PCL were intact Lateral Compartment: Complex tear involving the body and horn of the lateral meniscus, Intact meniscal root, No significant chondromalacia or signs of arthritis, No loose bodies Patellofemoral Compartment: Grade II chondromalacia seen over the ridge and lateral facet, No apparent patellar maltracking Procedure Description: Satya was greeted in the preoperative holding area where the correct side was identified and marked. The consent was reviewed with the patient and signed. The history and physical was updated. All questions were answered. He was taken back to the operating room. The patient was placed into the supine position on the operating room table. A nonsterile tourniquet was placed high onto the leg but not used. All bony prominences were well padded. Prophylactic antibiotics in the form of Cefazolin were administered. The left leg was then prepped with Chloraprep and draped in a standard fashion with stockinette and extremity drape. A timeout to confirm correct identity, side and site, procedure, allergies, anesthesia, and medical concerns was performed. The leg was placed into a pneumatic leg ingram, [id number]. A standard lateral portal was made at the lateral border of the patella tendon in line with the inferior pole of the patella, soft spot. The skin and deep tissue was incised sharply and the blunt trochar was inserted atraumatically. A diagnostic arthroscopy was performed and the findings are listed above. The suprapatellar pouch had no significant inflammatory change. The patellofemoral articulation showed some grade II chondromalacia about the median ridge and lateral facet as well as a central portion of the trochlea. There is seem to be some lateral positioning of the patella but in a flexed position was well-seated within the groove. The lateral gutter had no loose bodies and the medial gutter had no loose bodies. The knee was brought into some valgus stress in extension to open the medial compartment. A medial portal was made, localized by a spinal needle. The portal was created with an #11 blade through skin and capsule under direct visualization avoiding any meniscal injury. A probe was then inserted into the medial compartment. The medial compartment was fully inspected. The chondral surface of the tibia showed no significant chondromalacia and the surface of the femur showed a large chondral flap over the distal end of the medial femur. This measured about 1 cm from anterior to posterior and was anchored on a medially based stump. There was approximate 3 to 4 mm of unstable cartilage. The medial meniscus had no meniscal tear. Cartilage surfaces were debrided of any flaps with biters and shaver, leaving any intact fibers, but no loose fragments. The notch was then inspected which showed an intact ACL and an intact PCL. The leg was then brought into a figure of 4 position. The lateral compartment was fully inspected with the arthroscope and a probe. The chondral surface of the lateral femur showed no significant chondromalacia. The chondral surface of the lateral tibia showed no significant chondromalacia. The lateral meniscus had a complex tear involving the body and the horn of the lateral meniscus. This was like an inferior leaflet tear which was flipped an open book fashion into the joint. The lateral meniscus seem to be somewhat thickened and I question if there was not a discoid component to it. I used lourdes and biters to trim the material down into a stable base. This was inspected and did not show any loose components. It was not unstable from the periphery. The arthroscope was brought back into the suprapatellar pouch and the leg was in full extension. The knee was thoroughly irrigated with the arthroscopic fluid on high flow and pressure. Inflow was stopped and excess fluid was removed. The wounds were closed with 4-0 Nylon. They were dressed with Xeroform, 4x4 gauze, ABD pad, Kerlix and an KENNY wrap. A cryo-cuff was applied. The patient tolerated the procedure well and was returned to the Same Day Surgery area in a stable condition suffering no known complication.
== END 2023-12-02 16:09 | disposition home or self-care (01) ==
LOC: SUR 11:03
PROVIDERS: PCP Nurse Practitioner Family; Visit Provider Student in an Organized Health Care Education/Training Program
PROC: (CPT 29870; principal; 2023-12-02 14:00)
DX: S83.282A Other tear of lateral meniscus, current injury, left knee, initial encounter (principal); M94.262 Chondromalacia, left knee; X58.XXXA Exposure to other specified factors, initial encounter
CPT/HCPCS: 29881; J0665; J0690; J1100; J1885; J2250; J2405; J2704

== ENCOUNTER 2023-12-11 02:05 | Outpatient (CLI) | payer MEDICAID, SELFPAY ==
[2023-12-11 10:01] LABS: Calculated LDL 105 mg/dL (<100); Cholesterol 170 mg/dL (<200); HDL Cholesterol 51 mg/dL (40-60); Triglyceride 70 mg/dL (<150)
[2023-12-11 10:19] LABS: Hemoglobin A1C 5.2 % (<5.7)
[2023-12-11 19:00] LABS: HIV-1/2 Ag & Ab Screen Negative (Negative)
== END 2023-12-11 02:06 | disposition home or self-care (01) ==
LOC: LBO 02:05
PROVIDERS: PCP Nurse Practitioner Family; Visit Provider Nurse Practitioner Family
DX: Z11.4 Encounter for screening for human immunodeficiency virus [HIV] (principal); I10 Essential (primary) hypertension; Z13.1 Encounter for screening for diabetes mellitus; Z13.220 Encounter for screening for lipoid disorders
CPT/HCPCS: 36415; 80061; 87389; 82565; 83036

== ENCOUNTER 2025-05-01 12:03 | Emergency (ER) | payer MEDICAID, SELFPAY ==
[2025-05-01 12:05] VITALS: BP 162/86; PULSE 91; RESP 18; TEMP 36.6
--- NOTE | 2025-05-01 12:29 | DI.RAD_ITS ---
Exam(s) XR KNEE LT 3V AP,LAT,AMOS EXAM: XR KNEE LT 3V AP,LAT,AMOS CLINICAL HISTORY: swelling, pain, hx meniscus tear. TECHNIQUE: 2D digital imaging was performed. Three views. COMPARISON: CR XR KNEE LT 4V AP,LAT,AMOS,PAT from 05/27/2022 FINDINGS: Exam is limited by overlying clothing. BONES: No acute fracture is present. No bony destructive lesion is seen. Enthesophyte at the quadriceps insertion. JOINTS: The joint spaces are maintained. Mild spurring at the articular aspect of the patella and tibial spines. The knee is normally aligned. A moderate- sized joint effusion is seen. SOFT TISSUE: Venous varicosities medial soft tissues. IMPRESSION: Moderate-sized joint effusion. The preliminary [facility] report was reviewed. DATA REPOSITORY: RADIATION DOSE DELIVERED:
--- NOTE | 2025-05-01 12:30 | ED.GENADUL_ITS ---
Discharge Plan Disposition Patient Disposition: Home Condition: Stable Discharge Details Clinical Impression: Internal derangement of left knee, Varicose vein of leg Primary Care Provider: Tanvir Humphrey ED Provider: Yasmine Arriaga Home Meds and New Rx's Prescriptions: No Action No Known Home Meds Discharge Instructions Instructions: Internal Derangement of the Knee (DC) Additional Instructions: You were seen in the emergency department today for evaluation of left knee pain and swelling, likely due to your known meniscal problems and wear and tear from your physical job. You also have some varicose veins for which you were provided with a compression sock. In our department you do full physical examination performed and had an x-ray of your knee that showed the swelling and wear and tear/degenerative changes that we discussed. I provided you with some diclofenac gel, which you can also purchase [id number], and should use in conjunction with Tylenol to manage ongoing pain. I also recommend ice and elevation for your swelling, and you have been provided with a hinged knee brace for support. Please wear this when you are up and about. I have placed a referral for orthopedics, and you should reengage with their services to discuss next steps in management of your knee pain, including potential replacement or ongoing injections. Please follow-up with your primary care provider in the next few days to discuss this visit and any symptoms that change, worsen, or persist. Thank you for allowing us to be part of your care. Stand Alone Forms: Work Release Referrals: Dean Mcmullen MD [ [facility] STAFF PHYSICIAN, Orthopaedic Surgical] [facility] General Mode of arrival: ambulatory . Date/Time Provider Initiated Documentation: 05/01/25 12:10 . Limitations to Documentation: no limitations . Information obtained by: patient and old records reviewed . HPI Narrative: This is a 49-year-old male patient with past medical history significant for left lateral meniscus tear, chondromalacia status post injections of the same left knee, presenting for evaluation of worsening left knee pain and swelling. The patient reports that he works in [employer], was doing carpet cleaning the other day and believes that he aggravated his knee. He has noted significantly worsening swelling of the left knee over the last 2 to 3 days, and has had worsening pain especially with weightbearing and range of motion. He has trialed Biofreeze, but has not had any improvement with this intervention. He is limited in terms of his use of oral NSAIDs given a history of ulcers. He does not have any recent trauma or injuries, denies numbness, tingling, or weakness distal to the injury. Related Data Home Medications ?Medication ?Instructions ?Recorded ?Confirmed Unknown [No Known Home Meds] 04/01/25 0 05/01/25 Allergies Allergy/AdvReac Type Severity Reaction Status Date / Time No Known Allergies Allergy Verified 04/01/25 11:01 General Stated Complaint: Orthopedic SERENA: 4 Exam Narrative Exam Narrative: Gen: Awake and alert, in no apparent distress HEENT: Non-icteric sclera Neck: Supple Lungs: No apparent respiratory distress, normal respiratory effort. CV: Appears well perfused Abdomen: Non-distended MSK: Moves 4 extremities without apparent limitation in ROM with the exception of the left knee. There is obvious swelling and a palpable knee effusion, range of motion is preserved and the patient does have tenderness along the lateral joint line greater than the medial joint line. No significant swelling or tenderness to the popliteal fossa, the patient does have evidence of varicose veins of the lower extremity but no overlying skin changes otherwise. Skin: Visualized skin without rashes, cyanosis. Neuro: Antalgic gait, no obvious focal deficits or facial asymmetry. Speaks in full, clear sentences. Psych: Appropriate for situation. Course Vital Signs Vital signs: Vital Signs Temperature 36.6 C 05/01/25 12:05 Pulse 91 H 05/01/25 12:05 Respiratory Rate 18 05/01/25 12:05 Blood Pressure 162/86 H 05/01/25 12:05 Temperature 36.6 C 05/01/25 12:05 Pulse 91 H 05/01/25 12:05 Respiratory Rate 18 05/01/25 12:05 Blood Pressure 162/86 H 05/01/25 12:05 Pain Level 8 05/01/25 12:05 Medical Decision Making This is a 49-year-old male patient presenting for evaluation of a left knee pain and swelling. In the setting of his known meniscal tear, I am certainly concern ed for internal derangement. Also considered arthritic changes, mechanism not consistent with fracture or dislocation, no evidence for neurovascular derangement. The patient does not have any redness, swelling, or warmth nor pain with passive range of motion that would be suggestive of septic arthritis. No history of gout and this is less consistent with that etiology given the lack of skin changes. I will provide the patient with a dose of Tylenol, and we will trial Voltaren gel given his history of ulcer. I will obtain an x-ray of the affected left knee. - X-ray reveals degenerative changes and knee effusion, concerning for exacerbation of his known internal derangement. I did provide him with a hinged knee brace as he does not have access to one anymore, and a short take-home cou rse of oxycodone to supplement his Tylenol and Voltaren. I will provide him with a referral to establish with orthopedics, and at this time, the patient has had a full medical evaluation and is safe for discharge to home. They are hemodynamically stable, ambulatory, and tolerating PO. They are understanding of the follow-up plan and return precautions. They left our facility without incident. Yasmine Ariraga MD Quality:SDOH Health Related Social Needs: Health related social needs transpo insecurity house/e con circumstance lonely/isolated PFSH All Active Problems (Updated 05/01/25 @ 14:13 by Yasmine Arriaga MD) Varicose vein of leg (Acute) Varicose veins of left lower extremity (Acute) Edentulism (Acute) Right patellofemoral syndrome (Acute) Chondromalacia, left knee (Acute) DEPO MEDROL 12/15/23 Hypertension (Chronic) Acute lateral meniscus tear of left knee (Acute) Tendinitis of right quadriceps tendon (Acute) Patellar tendonitis of left knee (Acute) Internal derangement of right knee (Acute) Steroid injection: 04/04/2023; 05/27/2022 Internal derangement of left knee (Acute) Steroid injection: 04/04/2023; 05/27/2022 Lipoma (Acute) multiple small nodules- arms and legs-relatively small, 1-2 cm in diam. Medical History Personal history of nicotine dependence 12/2021-about 1 pack/day, 31-mind-lpij history Anxiety and depression Longstanding Acute pulpitis Surgical History H/O tooth extraction H/O wrist surgery Left wrist remotely probable ganglion versus lipoma removal Family History (Updated 04/05/25 @ 13:06 by Aria Jaimes) Father , Age 62 Heart disease Mother Depression Hypertension Social History (Updated 04/05/25 @ 12:56 by Aria Jaimes) Smoking/Tobacco Use Status: Current every day Tobacco Type: cigarettes Years smoked: 25 Tobacco: How many years used: 20 Quit status: considering quitting Second Hand Exposure: Yes Smoking risk assessment performed?: Yes Alcohol Intake: never Drug use: Never Substance use type: does not use Counseling given: No Adopted: No Caregiver/Support person: No Household members: significant other Housing: apartment Communication Needs: None Education Level: high school Do you need help understanding health information?: Never current occupation: Campus Administrative Assistant Sexually active: Yes Do you think of yourself as: straight/heterosexual Current gender identity: male What is your relationship status?: living with partner How often do you talk on the phone with friends or family?: once per week How often do you get together with friends or relatives?: once per week Do you belong to any clubs or organized social groups?: no Panel score (0-1 are the most socially isolated patients): 1 Duration: > 90 minutes/day Frequency: 5-6 times per week Special zaire needs: No Agree to transfusion: Yes Seatbelt use: always Helmet use: Yes Helmet use: always Drive intox or ride w/intox van driver helper: No Working smoke detector in home: Yes Carbon monox detector in home: Yes Firearms in home: Yes Firearms unloaded and locked: Yes Do you feel safe at home: Yes (unable to assess privately) Do you feel safe in your relationship?: Yes Victim of physical abuse: No Victim of emotional abuse: No Victim of sexual abuse: No Would you like helpful sources: No
[2025-05-01] MEDS: oxyCODONE 5 MG TAB PO (12:57)
[2025-05-01] MEDS: Acetaminophen 500 MG TAB 1000 MG PO (12:57)
[2025-05-01] MEDS: Diclofenac 1% Gel 100 GM TUBE TP (12:57)
--- NOTE | 2025-05-01 14:13 | DI.[facility]_ITS ---
PROCEDURE INFORMATION: Exam: XR Left Knee Exam date and time: 05/01/2025 1:14 PM Age: 49 years old Clinical indication: Swelling, pain, HX meniscus tear TECHNIQUE: Imaging protocol: Radiologic exam of the left knee. Views: 3 views. COMPARISON: MR LOWER JOINT LT WO 08/18/2023 10:23 AM FINDINGS: Bones/joints: No acute fracture or dislocation. Mild osteophytosis noted throughout the knee joint. Minimal joint space narrowing noted at the medial compartment. A small enthesophyte noted at the superior pole of the patella. Soft tissues: A moderate sized joint effusion is noted in the suprapatellar region. IMPRESSION: 1. No acute fracture or dislocation. 2. Moderate joint effusion noted. 3. Additional findings of osteoarthritic degenerative changes with mild osteophytosis and joint space narrowing. Dictated and Authenticated by: Kim Cheek MD. Orderin St. Benjie Underwood MD
--- NOTE | 2025-05-02 09:21 | NUR.NOTE ---
Access chart to print the demographic sheet for [facility] billing..Nursing Note:
== END 2025-05-01 14:38 | disposition home or self-care (01) ==
PROVIDERS: Emergency Provider Emergency Medicine; PCP Nurse Practitioner Family
DX: M23.92 Unspecified internal derangement of left knee (principal); I83.92 Asymptomatic varicose veins of left lower extremity; X58.XXXA Exposure to other specified factors, initial encounter; Z59.89 Other problems related to housing and economic circumstances; Z59.82 Transportation insecurity
CPT/HCPCS: 99283 ×2; 29505; 73562

== ENCOUNTER → 2025-09-05 02:07 | Outpatient (CLI) | payer MEDICAID, SELFPAY ==
--- NOTE | 2025-09-05 07:45 | DI.MRI_ITS ---
Exam(s) MR LOWER JOINT LT WO EXAM: MR LOWER JOINT LT WO CLINICAL HISTORY: L KNEE PAIN M23.92 INTERNAL DERANGEMENT LT KNEE. TECHNIQUE: Multiplanar multisequence MRI was performed. COMPARISON: MR MR LOWER JOINT RT WO from 08/18/2023 MR MR LOWER JOINT LT WO from 08/18/2023 CR,XR XR KNEE LT 3V AP,LAT,AMOS from 05/01/2025 FINDINGS: BONES: There is no fracture or contusion pattern. JOINTS: There is a 0.4 cm cartilage defect overlying the medial femoral condyle. There is thinning of the articular cartilage overlying the lateral tibial plateau. There is a joint effusion present. There is thickening of the synovium in heterogeneity of the fluid content superiorly. There is also mild surrounding hyperintense signal. TENDONS: Extensor mechanism: Unremarkable. Medial retinaculum: Unremarkable. Lateral retinaculum: Unremarkable. Popliteus: Unremarkable. MUSCLES: Unremarkable. MENISCI: The medial meniscus is unremarkable. There is decreased size of the body of the lateral meniscus which may be postsurgical. There is also now mild hyperintense signal seen along the inferior surface of the posterior horn of the lateral meniscus. SOFT TISSUES: There is mild hyperintense signal seen around the popliteus tendon. LIGAMENTS: Anterior Cruciate: Unremarkable. Posterior Cruciate: Unremarkable. Medial Collateral:Unremarkable. Lateral Collateral: Unremarkable. OTHER: IMPRESSION: 1. New 0.4 cm cartilage defect overlying the medial femoral condyle. 2. Moderate joint effusion with thickening of the synovium. Findings are suspicious for a synovitis. This can be infective or related to inflammatory arthritis. Synovitis can also be associated with osteoarthritis. 3. Decreased size of the body of the lateral meniscus which may be postsurgical. 4. New mild hyperintense signal seen along the inferior surface of the posterior horn of the lateral meniscus suspicious for tear. 5. Mild hyperintense signal seen within and around the popliteus tendon which may represent tendinosis. 6. There is no evidence of a ligament tear. DATA REPOSITORY:
== END ==
LOC: DI 02:07
PROVIDERS: PCP Nurse Practitioner Family; Visit Provider Student in an Organized Health Care Education/Training Program
DX: M23.92 Unspecified internal derangement of left knee (principal); M25.461 Effusion, right knee
CPT/HCPCS: 73721

== ENCOUNTER 2025-09-07 12:16 | Outpatient (CLI) | payer MEDICAID, SELFPAY ==
[2025-09-07 10:13] LABS: HCT 41.4 % (40.0-50.0); HGB 13.9 g/dL (13.5-17.5); MCH 27.5 pg (27.0-33.0); MCHC 33.6 % (32.0-36.0); MCV 82 fL (80-95); MPV 9.3 fL (8.0-11.0); Platelet Count 206 10^3/uL (130-400); RBC 5.05 10^6/uL (4.36-5.78); RDW 13.2 % (11.8-14.1); RDW-SD 39.3 fL; WBC 8.32 10^3/uL (4.4-10.8)
[2025-09-07 10:16] LABS: ESR 7 mm/hr (0-15)
[2025-09-07 10:32] LABS: Hemoglobin A1C 5.4 % (<5.7)
[2025-09-07 11:05] LABS: Cholesterol 154 mg/dL (<200); HDL Cholesterol 47 mg/dL (>or=40)
[2025-09-07 11:15] LABS: C-Reactive Protein 1.84 mg/dL (<or=0.5)
[2025-09-08 11:56] LABS: Lyme Ab w Rflx to Lyme Confirm Positive (Negative)
[2025-09-08 13:50] LABS: Lyme IgG Ab Positive (Negative)
[2025-09-10 16:19] LABS: B. miyamotoi PCR Negative (Negative); Babesia divergens/MO-1 Negative (Negative); Ehrlichia muris eauclairensis Negative (Negative)
== END 2025-09-07 12:17 | disposition home or self-care (01) ==
LOC: LBO 12:16
PROVIDERS: PCP Nurse Practitioner Family; Visit Provider Student in an Organized Health Care Education/Training Program
DX: Z13.220 Encounter for screening for lipoid disorders (principal); Z13.1 Encounter for screening for diabetes mellitus; M65.961 Unspecified synovitis and tenosynovitis, right lower leg
CPT/HCPCS: 36415; 80061; 85027; 85652; 86617; 87798; 83036; 86140; 86618